=== PATIENT | male | born 1955 | race Caucasian/White ===

== ENCOUNTER 2019-11-29 12:20 | Day surgery (SDC) | payer OTHER ==
[~2019-11-29] VITALS: Ht 182.9 cm; Wt 89.8 kg
[~2019-11-29 12:20] MED LIST: ASPIRIN PO; CHOL100011 PO; FINA5TAB4 PO; FLEC100T PO; HYDR-3237 PO; OMEG1CAP23 PO; RIVA20TA PO; TAMS-11 PO
[2019-11-29] MEDS ORDERED: LACTATED RINGERS 1,000 ML IV SCH (12:37)
[2019-11-29 12:42] VITALS: BP 122/79
[2019-11-29] MEDS ORDERED: ACETAMINOPHEN 500 MG TABLET ONE (12:48)
[2019-11-29] MEDS ORDERED: GABAPENTIN 300 MG CAPSULE ONE (12:49)
[2019-11-29] MEDS ORDERED: CHLORHEXIDINE 15 ML UDC ONE (12:49)
[2019-11-29] MEDS ORDERED: ACETAMINOPHEN 500 MG TABLET PO ONE (13:00)
[2019-11-29] MEDS ORDERED: GABAPENTIN 300 MG CAPSULE PO ONE (13:00)
[2019-11-29] MEDS ORDERED: CHLORHEXIDINE 15 ML UDC MM ONE (13:00)
[2019-11-29] MEDS ORDERED: OXYcodone 5 MG/5 ML ORAL.SOL UDC PO PRN (14:00)
[2019-11-29] MEDS ORDERED: HYDROmorphone 2 MG/ML, 1ML IVPush PRN (14:00)
[2019-11-29] MEDS ORDERED: FENTANYL PF 100 MCG/2ML IV PRN (14:00)
[2019-11-29] MEDS ORDERED: LABETALOL 5MG/ML, 20ML IV PRN (14:00)
[2019-11-29] MEDS ORDERED: HALOPERIDOL 5 MG/ML IV PRN (14:00)
[2019-11-29] MEDS ORDERED: MEPERIDINE/PF 25MG/ML,1ML IVPush PRN (14:00)
[2019-11-29] MEDS ORDERED: hydrALAzine 20 MG/ML, 1ML IV PRN (14:00)
[2019-11-29] MEDS ORDERED: PROMETHAZINE 25 MG/ML, 1ML IV PRN (14:00)
[2019-11-29] MEDS ORDERED: FENTANYL PF 100 MCG/2ML ONE ×2 (14:23→15:55)
[2019-11-29] MEDS ORDERED: MIDAZOLAM 1 MG/ML, 2ML ONE (14:23)
[2019-11-29] MEDS ORDERED: ONDANSETRON 2MG/ML, 2ML ONE (15:55)
[2019-11-29] MEDS ORDERED: PROPOFOL 10 MG/ML, 20ML ONE (15:55)
[2019-11-29] MEDS ORDERED: SUCCINYLCHOLINE 20 MG/ML, 10ML ONE (15:55)
[2019-11-29] MEDS ORDERED: ROCURONIUM 10MG/ML,5ML ONE (15:55)
[2019-11-29] MEDS ORDERED: CEFAZOLIN 1,000 MG ONE (15:55)
[2019-11-29] MEDS ORDERED: DEXAMETHASONE 4 MG/ML, 1ML ONE (15:55)
[2019-11-29] MEDS ORDERED: GLYCOPYRROLATE 0.2MG/1ML, 5ML ONE (15:55)
[2019-11-29] MEDS ORDERED: NEOSTIGMINE 1 MG/ML, 10ML ONE (15:55)
[2019-11-29] MEDS ORDERED: OXYcodone 5 MG/5 ML ORAL.SOL UDC ONE (16:23)
== END 2019-11-29 18:30 | disposition home or self-care (01) ==
LOC: OUT 12:20
PROVIDERS: ATTEND Urology
DX: N32.89 Other specified disorders of bladder (principal); N30.20 Other chronic cystitis without hematuria; N40.1 Benign prostatic hyperplasia with lower urinary tract symptoms; R33.8 Other retention of urine; R39.11 Hesitancy of micturition; R39.14 Feeling of incomplete bladder emptying; R35.1 Nocturia; R39.12 Poor urinary stream; Z79.899 Other long term (current) drug therapy
CPT/HCPCS: 52235; 52601; 88305; 93005; C1769; J0330; J0690; J1100; J2250; J2405; J2704; J2710; J3010; J7120

== ENCOUNTER 2021-04-13 09:43 | Observation (INO) | payer OTHER ==
[~2021-04-13] VITALS: Ht 182.9 cm; Wt 91.9 kg
[2021-04-13] MEDS ORDERED: TURMERIC PO (10:20)
[2021-04-13] MEDS ORDERED: PLEASE ENTER HEIGHT AND WEIGHT MC SCH (10:30)
[2021-04-13] MEDS ORDERED: SODIUM CHLORIDE 0.9% 1,000 ML IV SCH (10:30)
[2021-04-13 10:51] LABS: BASOPHILS % (AUTO) 1 % (0-1); EOSINOPHILS % (AUTO) 1 % (1-7); LYMPHOCYTES % (AUTO) 28 % (22-44); MEAN CORPUSCULAR HEMOGLOBIN 32.4 pg (27.5-34.5); MEAN CORPUSCULAR HGB CONC 33.8 g/dL (33.2-36.2); MEAN PLATELET VOLUME 8.3 fL (7.4-10.4); MONOCYTES % (AUTO) 8 % (2-9); NEUTROPHILS % (AUTO) 62 % (42-75); PLATELET COUNT 177 x10^3/uL (130-400); RED BLOOD COUNT 4.61 x10^6/uL (4.38-5.82); RED CELL DISTRIBUTION WIDTH 13.4 % (9.4-14.8)
[2021-04-13] MEDS ORDERED: MIDAZOLAM 1 MG/ML, 2ML ONE (10:54)
[2021-04-13] MEDS ORDERED: FENTANYL PF 250 MCG/5ML ONE (10:54)
[2021-04-13] MEDS ORDERED: PROPOFOL 10 MG/ML, 20ML ONE (10:59)
[2021-04-13] MEDS ORDERED: ROCURONIUM 10MG/ML,5ML ONE (10:59)
[2021-04-13] MEDS ORDERED: DEXAMETHASONE 4 MG/ML, 1ML ONE (10:59)
[2021-04-13 11:02] LABS: ANION GAP 8 mmol/L (5-15); CALCIUM 8.7 mg/dL (8.5-10.1); CHLORIDE 108 mmol/L (98-107); CREATININE 0.82 mg/dL (0.7-1.3)
[2021-04-13] MEDS ORDERED: EPHEDRINE 50 MG/ML, 1ML ONE (11:25)
[2021-04-13] MEDS ORDERED: HEPARIN 1,000 UNITS/ML, 10ML ONE ×3 (11:50→12:41)
[2021-04-13] MEDS ORDERED: FLECAINIDE 100MG TABLET PO PRN (13:30)
[2021-04-13] MEDS ORDERED: ZOLPIDEM 5MG TABLET PO PRN (13:30)
[2021-04-13] MEDS ORDERED: ONDANSETRON 2MG/ML, 2ML IVPush PRN ×2 (13:30→14:00)
[2021-04-13] MEDS ORDERED: ACETAMINOPHEN 325 MG TABLET PO PRN (13:30)
[2021-04-13] MEDS ORDERED: ALBUTEROL SULFATE 2.5 MG/3 ML NPPB PRN (14:00)
[2021-04-13] MEDS ORDERED: FENTANYL PF 100 MCG/2ML IV PRN (14:00)
[2021-04-13] MEDS ORDERED: DIAZEPAM 5 MG/ML, 2ML IVPush PRN (14:00)
[2021-04-13] MEDS ORDERED: PROMETHAZINE 25 MG/ML, 1ML IVPush PRN (14:00)
[2021-04-13] MEDS ORDERED: EPHEDRINE 50 MG/ML, 1ML IVPush PRN (14:00)
[2021-04-13] MEDS ORDERED: DIPHENHYDRAMINE 50 MG/ML, 1ML IVPush PRN ×2 (14:00)
[2021-04-13] MEDS ORDERED: MEPERIDINE/PF 25MG/0.5ML IVPush PRN (14:00)
[2021-04-13] MEDS ORDERED: hydrALAzine 20 MG/ML, 1ML IV PRN (14:00)
[2021-04-13] MEDS ORDERED: MIDAZOLAM 1 MG/ML, 2ML IV PRN (14:00)
[2021-04-13] MEDS ORDERED: HYDROmorphone 1 MG/ML, 1ML INJ IVPush PRN (14:00)
[2021-04-13] MEDS ORDERED: PROMETHAZINE 12.5 MG SUPP PR PRN (14:00)
[2021-04-13] MEDS ORDERED: OXYcodone 5 MG/5 ML ORAL.SOL UDC PO PRN (14:00)
[2021-04-13] MEDS ORDERED: LABETALOL 5MG/ML, 20ML IV PRN (14:00)
[2021-04-13] MEDS ORDERED: APIXABAN 5 MG TABLET ONE (14:05)
[2021-04-13] MEDS: APIXABAN 5 MG TABLET PO SCH ×2 (14:22→21:46)
[2021-04-13 20:00] VITALS: BP 109/71
[2021-04-13] MEDS: COLCHICINE 0.6 MG CAPSULE PO SCH (21:46)
[2021-04-14 03:00] VITALS: BP 111/76
[2021-04-14] MEDS: APIXABAN 5 MG TABLET PO SCH (08:17)
[2021-04-14] MEDS: COLCHICINE 0.6 MG CAPSULE PO SCH (08:17)
[2021-04-14 08:38] VITALS: BP 111/74
[2021-04-14] MEDS ORDERED: ACET325T26 PO (10:18)
[2021-04-14] MEDS ORDERED: APIX5TAB PO (10:18)
== END 2021-04-14 13:10 | disposition home or self-care (01) ==
LOC: CACL 09:43 → 5SO 14:51 → CACL 21:58 → 5SO 21:59
PROVIDERS: ADMIT Internal Medicine Cardiovascular Disease; ATTEND Internal Medicine Cardiovascular Disease
DX: I48.91 Unspecified atrial fibrillation (principal); Z20.822 Contact with and (suspected) exposure to COVID-19; I48.4 Atypical atrial flutter; D68.69 Other thrombophilia; Z79.899 Other long term (current) drug therapy
CPT/HCPCS: 36415; 71046; 80048; 85025; 93005; 93308; 93312; 93321; 93325; 93613; 93655; 93656; 93662; C1730; C1759; C1766; C1893; C1894; C2630; G0378; J1100; J1644; J2250; J2704; J3010; U0003; U0005; 85347

== ENCOUNTER 2021-05-07 13:52 | Day surgery (SDC) | payer OTHER ==
[~2021-05-07] VITALS: Ht 182.9 cm; Wt 82.0 kg
[~2021-05-07 13:52] MED LIST changes: +ACET325T26 PO; +APIX5TAB PO; +TURMERIC PO
[2021-05-07] MEDS ORDERED: APIX5TAB PO (14:14)
[2021-05-07 14:34] LABS: ANION GAP 5 mmol/L (5-15); CALCIUM 8.7 mg/dL (8.5-10.1); CHLORIDE 107 mmol/L (98-107); CREATININE 0.85 mg/dL (0.7-1.3)
== END 2021-05-07 15:40 | disposition home or self-care (01) ==
LOC: CACL 13:52
PROVIDERS: ATTEND Internal Medicine Cardiovascular Disease
DX: I48.92 Unspecified atrial flutter (principal); I48.0 Paroxysmal atrial fibrillation; E66.3 Overweight; Z68.26 Body mass index [BMI] 26.0-26.9, adult; Z79.01 Long term (current) use of anticoagulants; Z79.899 Other long term (current) drug therapy
CPT/HCPCS: 36415; 80048; 92960; 93005